=== PATIENT | male | born 1985 | race Caucasian/White ===

== ENCOUNTER 2024-07-03 10:59 | Emergency (ER) | payer OTHER ==
[2024-07-03 11:12] VITALS: TEMP 97.4
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
[2024-07-03 11:41] LABS: Absolute Neutrophil Ct (ANC) 3.57 x10^3/uL (1.78-5.38); BASOPHIL % 0.7 % (0.2-1.2); Basophil (Absolute #) 0.04 x10^3/uL (0.01-0.08); Eosinophil % 1.3 % (0.8-7.0); Eosinophil (Absolute #) 0.07 x10^3/uL (0.04-0.54); Hematocrit 42.8 % (40.1-51.0); Hemoglobin 13.6 g/dL (13.7-17.5); IMMATURE GRAN # 0.01 x10^3u/L (0.001-0.031); IMMATURE GRAN % 0.2 % (0.001-0.429); Lymphocyte (Absolute #) 1.49 x10^3/uL (1.32-3.57); Lymphocytes % 26.9 % (21.8-53.1); Mean Cell Volume 83.8 fL (79.0-92.2); Mean Corpuscular Hemoglobin 26.6 pg (25.7-32.2); Mean Corpuscular Hgb Concent. 31.8 g/dL (32.3-36.5); Mean Platelet Volume 10.7 fL (9.4-12.4); Monocyte (Absolute #) 0.36 x10^3/uL (0.30-0.82); Monocytes % 6.5 % (5.3-12.2); Neutrophil % 64.4 % (34.0-67.9); Platelet Count 197 x10^3/uL (163-337); Red Blood Count 5.11 x10^6/uL (4.63-6.08); Red Cell Distribution Width 16.8 % (11.6-14.4); White Blood Count 5.5 x10^3/uL (4.23-9.07)
[2024-07-03 12:01] LABS: ALBUMIN 4.4 g/dL (3.5-5.0); ANION GAP 13.8 MEQ/L (5-15); BILIRUBIN,TOTAL 0.5 mg/dL (0.2-1.3); Calcium 9.7 mg/dL (8.4-10.2); Creatinine 1 0.96 mg/dL (0.66-1.25); EST GLOMERULAR FILTRATION RATE 104.4 ML/MIN; Potassium 3.9 mmol/L (3.5-5.1); Total Protein 7.2 g/dL (6.3-8.2)
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
[2024-07-03 12:28] LABS: Appearance Clear (Clear); Bacteria None Seen /HPF (None Seen); Bilirubin Negative (Negative); Blood Negative (Negative); Epithelial Cells None Seen /HPF (None Seen); Glucose, Urine Negative (Negative); Hyaline Casts NONE SEEN /LPF (0-2); Ketones Negative (Negative); Leukocyte Esterase Negative (Negative); Nitrite Negative (Negative); Ph 6.5 (4.6-8.0); Protein,Urine Dip Negative (Negative); RBC 0-2 /HPF (0-5); Urobilinogen 0.2 mg/dL (0.2); WBC 0-2 /HPF (0-5)
[2024-07-03 13:20] VITALS: BP 115/77; PULSE 70; RESP 18; O2SAT 99
== END 2024-07-03 13:30 | disposition home or self-care (01) ==
LOC: ED 10:59
DX: S16.1XXA Strain of muscle, fascia and tendon at neck level, initial encounter (principal); S46.912A Strain of unspecified muscle, fascia and tendon at shoulder and upper arm level, left arm, initial encounter; V59.40XA Driver of pick-up truck or van injured in collision with unspecified motor vehicles in traffic accident, initial encounter; R07.9 Chest pain, unspecified; R51.9 Headache, unspecified
CPT/HCPCS: 36415; 70450; 71250; 72125; 80053; 81001; 84484; 85025; 93005; 99285